=== PATIENT | female | born 1965 | race American Indian/Alaskan Native ===

== ENCOUNTER 2017-06-26 10:43 | Emergency (ER) | payer MEDICAID, OTHER ==
[2017-06-26 10:50] VITALS: BP 170/102; PULSE 81; RESP 16; TEMP 97.2; O2SAT 96
--- NOTE | 2017-06-26 11:32 | C.PDOC ---
History Of Present Illness 52 yo female c/o right ankle pain since yesterday. Pt notes she was walking, tripped and fell twisting her right ankle and landing on her left knee. No head trauma. No change in sensation. Able to ambulate. Of note, pt has a h/o HTN and notes she did not take her medication this morning. Admits she is "supposed to" take Clonidine 0.1 mg TID but she does not like it therefore forgets frequently. Denies chest pain, sob, headache , visual changes , or dizziness. Time Seen by Provider: 06/26/17 11:00 Chief Complaint (Nursing): Lower Extremity Problem/Injury History Per: Patient History/Exam Limitations: no limitations Onset/Duration Of Symptoms: Days (yesterday) Current Symptoms Are (Timing): Still Present Past Medical History Vital Signs: Last Vital Signs Temp 97.2 F L 06/26/17 10:47 Pulse 81 06/26/17 10:47 Resp 16 06/26/17 10:47 BP 170/102 H 06/26/17 10:47 Pulse Ox 96 06/26/17 11:35 - Medical History PMH: HTN Family History: States: Unknown Family Hx - Social History Hx Alcohol Use: No Hx Substance Use: No - Immunization History Hx Tetanus Toxoid Vaccination: No Hx Influenza Vaccination: No Hx Pneumococcal Vaccination: No Review Of Systems Except As Marked, All Systems Reviewed And Found Negative. Musculoskeletal: Positive for: Other (ankle pain) Physical Exam - Physical Exam Appears: Well, Non-toxic, No Acute Distress Skin: Warm, Dry, Other ((+) superficial abrasion to the left knee) Head: Atraumatic, Normacephalic Eye(s): bilateral: Normal Inspection, EOMI Nose: Normal Oral Mucosa: Moist Neck: Normal, Normal ROM, Supple Chest: Symmetrical Respiratory: No Accessory Muscle Use Back: Normal Inspection Extremity: Normal ROM, Tenderness ((+) tenderness and swelling to the lateral aspect of the right ankle . No tenderness or swelling to the left knee. ), No Pedal Edema, No Calf Tenderness, Capillary Refill (<2 sec), Swelling Pulses: Left Dorsalis Pedis: Normal, Right Dorsalis Pedis: Normal Neurological/Psych: Oriented x3, Normal Speech, Normal Motor, Normal Sensation Gait: Steady ED Course And Treatment O2 Sat by Pulse Oximetry: 96 - Other Rad Ankle XR X-Ray: Interpreted by Me, Viewed By Me Interpretation: PROCEDURE: Right Ankle Radiographs. HISTORY: trauma. COMPARISON: None available. FINDINGS: BONES: No acute displaced fracture. JOINTS: No dislocation. SOFT TISSUES: Marked soft tissue swelling. No evidence of radiopaque foreign body. OTHER FINDINGS: None. IMPRESSION: Marked soft tissue swelling. No acute displaced fracture or dislocation identified. If symptoms persist or if there is clinical concern, x-ray follow- up in 7-10 days should be considered. Progress Note: Motrin and Clonidine ordered. Wound was cleansed and dressed. Ankle air cast applied and crutches by biological technical officer. Discussed the risks of untreated HTN and importance of taking her chronic HTN medication. Instructed rice and to follow up with ortho in 1-2 days. Disposition - Disposition Referrals: Buffy Short MD [Staff Provider] - Disposition: HOME/ ROUTINE Disposition Time: 11:35 Condition: STABLE Additional Instructions: Please apply ice to area 15 minutes three times a day. Take Motrin as needed for pain every 6 hours, with food to not upset stomach. Follow up with orthopedic if pain persists over one week. Prescriptions: Naproxen [Naprosyn] 1 tab PO BID PRN #20 tab PRN Reason: Pain Instructions: Ankle Sprain (ED) Forms: [employer] ([place]) - Clinical Impression Clinical Impression: Ankle sprain, Knee abrasion, HTN (hypertension)
[2017-06-26] MEDS ORDERED: Bacitracin 500 Units/gm Oint Foilpak UD TOP ONE (11:53)
--- NOTE | 2017-06-26 11:56 | RAD ---
PROCEDURE: Right Ankle Radiographs. HISTORY: trauma COMPARISON: None available. FINDINGS: BONES: No acute displaced fracture. JOINTS: No dislocation. SOFT TISSUES: Marked soft tissue swelling. No evidence of radiopaque foreign body. OTHER FINDINGS: None. IMPRESSION: Marked soft tissue swelling. No acute displaced fracture or dislocation identified. If symptoms persist or if there is clinical concern, x-ray follow-up in 7-10 days should be considered.
== END 2017-06-26 13:21 | disposition home or self-care (01) ==
LOC: C.ER 10:43
DX: S93.401A Sprain of unspecified ligament of right ankle, initial encounter (principal); S80.212A Abrasion, left knee, initial encounter; W01.0XXA Fall on same level from slipping, tripping and stumbling without subsequent striking against object, initial encounter; I10 Essential (primary) hypertension
CPT/HCPCS: 73610; 97116; 97161; 99283; G8978; G8979; G8980